=== PATIENT | female | born 1995 | race Caucasian/White ===

== ENCOUNTER 2019-01-23 21:28 | Inpatient (IN) | payer OTHER ==
[~2019-01-23] VITALS: Ht 157.5 cm; Wt 90.7 kg
[~2019-01-23 21:28] MED LIST: ACET-6134 PO; FERR-212 PO
--- NOTE | 2019-01-23 21:33 | NUR ---
PT SCREENED BY DR VALENTIN. PT TAKEN TO L&D. TO RETURN TO ER AFTER CLEARED BY L&D.
[2019-01-23] MEDS ORDERED: NALBUPHINE 10 MG/ML AMP IVP ONE (22:10)
[2019-01-23] MEDS ORDERED: ONDANSETRON 4 MG/2 ML VIAL IVP PRN (22:10)
[2019-01-23] MEDS ORDERED: ALUMINUM HYD/MAG/SIMETHICONE 30 ML UDC PO PRN (22:15)
[2019-01-23] MEDS ORDERED: ONDANSETRON 4 MG/2 ML VIAL ONE (22:34)
[2019-01-23] MEDS ORDERED: NALBUPHINE 10 MG/ML AMP ONE (22:35)
[2019-01-23 23:36] VITALS: BP 147/86
[2019-01-23 23:39] LABS: ANION GAP 15.5 (8-16); CARBON DIOXIDE 22.4 mmol/L (21-32); CREATININE 0.6 mg/dL (0.6-1.3); POTASSIUM 3.9 mmol/L (3.5-5.1)
[2019-01-23 23:57] LABS: BILIRUBIN,DIRECT 0.1 mg/dL (0.0-0.3); TOTAL BILIRUBIN 0.4 mg/dL (0.0-1.0)
[2019-01-23 23:58] LABS: ALBUMIN 2.4 g/dL (3.4-5.0)
[2019-01-24] MEDS: TERBUTALINE 1 MG/ML VIAL SUBQ SCH ×2 (00:49→01:29)
[2019-01-24] MEDS ORDERED: TERBUTALINE 1 MG/ML VIAL SUBQ ONE ×2 (00:57→01:39)
[2019-01-24] MEDS: LACTATED RINGERS 1,000 ML IV SCH ×3 (01:24→18:38)
[2019-01-24] MEDS: TERBUTALINE 2.5 MG TAB PO SCH ×3 (05:59→18:22)
[2019-01-24] MEDS ORDERED: TERBUTALINE 2.5 MG TAB ONE ×3 (06:02→18:31)
[2019-01-24] MEDS ORDERED: PROMETHAZINE 25 MG/ML VIAL IVP PRN (07:35)
[2019-01-24] MEDS ORDERED: ALUMINUM HYD/MAG/SIMETHICONE 30 ML UDC ONE ×4 (07:42→21:18)
--- NOTE | 2019-01-24 07:51 | NUR ---
PATIENT HAS BEEN SCREENED AND CATEGORIZED LOW NUTRITION RISK. PATIENT WILL BE SEEN WITHIN 7 DAYS OF ADMISSION. 01/30/[address]
[2019-01-24] MEDS: NALBUPHINE 10 MG/ML AMP IVP PRN (07:56)
[2019-01-24] MEDS ORDERED: PROMETHAZINE 25 MG/ML VIAL ONE (08:04)
[2019-01-24] MEDS ORDERED: NALBUPHINE 10 MG/ML AMP ONE (08:04)
[2019-01-24] MEDS: FAMOTIDINE 20 MG TAB PO SCH ×2 (09:06→21:10)
[2019-01-24] MEDS: ALUMINUM HYD/MAG/SIMETHICONE 30 ML UDC PO SCH ×4 (09:07→21:11)
[2019-01-24 10:35] LABS: BASOPHILS % (AUTO) 0.1 % (0.0-2.0); EOSINOPHILS % (AUTO) 0.3 % (0.0-4.0); HEMATOCRIT 34.6 % (36-48); HEMOGLOBIN 11.8 g/dL (12.0-16.0); LYMPHOCYTES # (AUTO) 1.3 K/uL (2.5-16.5); LYMPHOCYTES % (AUTO) 11.9 % (20.5-51.1); MEAN CORPUSCULAR HEMOGLOBIN 28 pg (27-31); MEAN CORPUSCULAR HGB CONC 34 g/dL (33-37); MEAN CORPUSCULAR VOLUME 82.9 fL (80-94); MONOCYTES # (AUTO) 0.8 K/uL (0.8-1.0); MONOCYTES % (AUTO) 7.9 % (1.7-9.3); NEUTROPHILS # (AUTO) 8.6 K/uL (1.8-7.7); NEUTROPHILS % (AUTO) 79.8 % (42.2-75.2); PLATELET COUNT (AUTO) 137 K/uL (140-450); RED BLOOD CELL COUNT(AUTO) 4.18 MIL/uL (4.20-5.40); RED CELL DISTRIBUTION WIDTH 14.2 % (11.6-13.7); WHITE BLOOD COUNT (AUTO) 10.8 K/uL (4.8-10.8)
[2019-01-24 11:02] LABS: PROTHROMBIN TIME 9.3 secs (10.8-13.4)
[2019-01-24] MEDS: BETAMETH ACET/BETAMETH NA PH 30 MG/5 ML VIAL IM SCH (13:34)
[2019-01-24] MEDS: METOCLOPRAMIDE 10 MG/2 ML INJ VIAL IVP PRN (13:35)
[2019-01-24] MEDS ORDERED: BETAMETH ACET/BETAMETH NA PH 30 MG/5 ML VIAL IM ONE (13:43)
[2019-01-24] MEDS ORDERED: METOCLOPRAMIDE 10 MG/2 ML INJ VIAL ONE (13:43)
[2019-01-25] MEDS: TERBUTALINE 2.5 MG TAB PO SCH ×2 (00:02→06:06)
[2019-01-25] MEDS ORDERED: TERBUTALINE 2.5 MG TAB ONE ×3 (00:14→11:55)
[2019-01-25] MEDS: ALUMINUM HYD/MAG/SIMETHICONE 30 ML UDC PO SCH ×3 (01:04→13:06)
[2019-01-25] MEDS ORDERED: ALUMINUM HYD/MAG/SIMETHICONE 30 ML UDC ONE ×4 (01:15→13:15)
[2019-01-25] MEDS: NALBUPHINE 10 MG/ML AMP IVP PRN (01:25)
[2019-01-25] MEDS: LACTATED RINGERS 1,000 ML IV SCH ×2 (01:29→08:14)
[2019-01-25] MEDS: METOCLOPRAMIDE 10 MG/2 ML INJ VIAL IVP PRN ×2 (01:32→12:56)
[2019-01-25] MEDS ORDERED: NALBUPHINE 10 MG/ML AMP ONE (01:34)
[2019-01-25] MEDS ORDERED: METOCLOPRAMIDE 10 MG/2 ML INJ VIAL ONE ×2 (01:42→13:07)
[2019-01-25] MEDS: BETAMETH ACET/BETAMETH NA PH 30 MG/5 ML VIAL IM SCH (01:55)
[2019-01-25] MEDS ORDERED: BETAMETH ACET/BETAMETH NA PH 30 MG/5 ML VIAL IM ONE (01:59)
--- NOTE | 2019-01-25 08:36 | NUR ---
PATIENT HAS BEEN SCREENED AND CATEGORIZED LOW NUTRITION RISK. PATIENT WILL BE SEEN WITHIN 7 DAYS OF ADMISSION. 01/31/[address]
[2019-01-25] MEDS: FAMOTIDINE 20 MG TAB PO SCH (09:25)
[2019-01-25] MEDS ORDERED: metFORMIN 850 MG TAB PO SCH (10:50)
== END 2019-01-25 15:32 | disposition home or self-care (01) | DRG 566 ==
LOC: MED 21:28 → MLD 21:35 → MED 21:35 → MLD 21:41 → OBSVTOIN 01-24 13:25
PROVIDERS: ADMIT Obstetrics & Gynecology; ATTEND Obstetrics & Gynecology
DX: O99.613 Diseases of the digestive system complicating pregnancy, third trimester (principal); O24.419 Gestational diabetes mellitus in pregnancy, unspecified control; K29.70 Gastritis, unspecified, without bleeding; O60.03 Preterm labor without delivery, third trimester; K30 Functional dyspepsia; Z3A.30 30 weeks gestation of pregnancy
CPT/HCPCS: 99281; G0378; 36415; 76700; 76805; 80048; 80076; 81000; 82150; 82948; 83690; 85025; 85379; 85384; 85610; 85730; J0702; J2300; J2405; J2550; J2765; J3105; J7120; Q0092

== ENCOUNTER 2019-01-27 01:35 | Observation (INO) | payer OTHER ==
[~2019-01-27] VITALS: Ht 157.5 cm; Wt 98.0 kg
[~2019-01-27 01:35] MED LIST changes: -ACET-6134 PO
[2019-01-27 01:37] VITALS: BP 182/117
--- NOTE | 2019-01-27 01:42 | NUR ---
TRIAGE COMPLETE. REPORT TO ANDRESSA MERRILL IN LABOR AND DELVIERY. TRANSPORT VIA W/C BY ARNOLDO BUNN.
[2019-01-27] MEDS ORDERED: NALBUPHINE 10 MG/ML AMP IVP SCH (02:30)
[2019-01-27] MEDS ORDERED: LACTATED RINGERS 1,000 ML IV SCH (02:30)
[2019-01-27] MEDS ORDERED: NALBUPHINE 10 MG/ML AMP ONE ×3 (02:50→11:28)
[2019-01-27 03:42] LABS: BASOPHILS % (AUTO) 0.3 % (0.0-2.0); EOSINOPHILS # (AUTO) 0.1 K/uL (0-0.4); EOSINOPHILS % (AUTO) 0.8 % (0.0-4.0); HEMATOCRIT 37.1 % (36-48); HEMOGLOBIN 12.4 g/dL (12.0-16.0); LYMPHOCYTES # (AUTO) 2.4 K/uL (2.5-16.5); LYMPHOCYTES % (AUTO) 17.1 % (20.5-51.1); MEAN CORPUSCULAR HEMOGLOBIN 28 pg (27-31); MEAN CORPUSCULAR HGB CONC 33 g/dL (33-37); MEAN CORPUSCULAR VOLUME 82.6 fL (80-94); MONOCYTES # (AUTO) 1.3 K/uL (0.8-1.0); MONOCYTES % (AUTO) 9.6 % (1.7-9.3); NEUTROPHILS # (AUTO) 10.1 K/uL (1.8-7.7); NEUTROPHILS % (AUTO) 72.2 % (42.2-75.2); PLATELET COUNT (AUTO) 184 K/uL (140-450); RED CELL DISTRIBUTION WIDTH 14.2 % (11.6-13.7)
[2019-01-27] MEDS: TERBUTALINE 1 MG/ML VIAL SUBQ SCH ×2 (03:50→04:02)
[2019-01-27 03:54] LABS: ALBUMIN 2.4 g/dL (3.4-5.0); TOTAL BILIRUBIN 0.3 mg/dL (0.0-1.0)
[2019-01-27 03:58] LABS: BILIRUBIN,DIRECT 0.1 mg/dL (0.0-0.3)
[2019-01-27] MEDS ORDERED: TERBUTALINE 1 MG/ML VIAL SUBQ ONE (03:59)
[2019-01-27] MEDS ORDERED: NALBUPHINE 10 MG/ML AMP IVP PRN (07:55)
[2019-01-27] MEDS ORDERED: ALUMINUM HYD/MAG/SIMETHICONE 30 ML UDC PO PRN (08:00)
[2019-01-27] MEDS ORDERED: ALUMINUM HYD/MAG/SIMETHICONE 30 ML UDC ONE ×3 (08:20→16:08)
[2019-01-27] MEDS ORDERED: METOCLOPRAMIDE 10 MG/2 ML INJ VIAL IVP PRN (08:25)
--- NOTE | 2019-01-27 08:27 | NUR ---
PATIENT HAS BEEN SCREENED AND CATEGORIZED LOW NUTRITION RISK. PATIENT WILL BE SEEN WITHIN 7 DAYS OF ADMISSION. 02/02/[address]
[2019-01-27 08:29] VITALS: BP 143/71
[2019-01-27] MEDS ORDERED: METOCLOPRAMIDE 10 MG/2 ML INJ VIAL ONE (08:56)
[2019-01-27] MEDS ORDERED: LABETALOL 100 MG/20 ML VIAL ONE (10:53)
[2019-01-27] MEDS ORDERED: LABETALOL 100 MG/20 ML VIAL IV SCH (11:00)
[2019-01-27] MEDS ORDERED: MAG SULF 2000 MG/WATER PREMIX 100 ML IV ONE (11:20)
[2019-01-27] MEDS ORDERED: MAG SULF 20 GM/H2O PREMIX DRIP 500 ML IV SCH (11:20)
[2019-01-27] MEDS ORDERED: NIFEdipine 10 MG CAPLF ONE (11:36)
[2019-01-27] MEDS ORDERED: MAGNESIUM SULFATE 4GM in STERILE WATER 100 ML PREMIX IV SCH (12:00)
[2019-01-27] MEDS ORDERED: NIFEdipine 10 MG CAPLF PO SCH (12:00)
[2019-01-27] MEDS ORDERED: MAG SULF 20 GM/H2O PREMIX DRIP 500 ML IV ONE (12:30)
--- NOTE | 2019-01-27 13:00 | NUR ---
ORDER FOR HIGHER LEVEL OF CARE FAXED TO [facility].
[2019-01-27 13:07] LABS: APPEARANCE,URINE CLEAR (CLEAR); BILIRUBIN,URINE NEGATIVE (NEGATIVE); BLOOD, URINE NEGATIVE (NEGATIVE); COLOR,URINE YELLOW (YELLOW); LEUKOCYTE ESTERASE ,URINE NEGATIVE (NEGATIVE); NITRITE, URINE NEGATIVE (NEGATIVE); PH,URINE 8.5 (5.0-9.0); UGLUCOSE 1+ (NEGATIVE)
[2019-01-27] MEDS ORDERED: ceFAZolin 1,000 MG VIAL ONE (13:57)
[2019-01-27 14:00] LABS: PROTHROMBIN TIME 8.8 secs (10.8-13.4)
[2019-01-27 14:02] LABS: RBC,URINE 0-5 /HPF (0-5); WBC,URINE 0-5 /HPF (0-5)
--- NOTE | 2019-01-27 14:13 | NUR ---
CONTACTED TALA OF [facility] AT [phone], REGARDING HIGHER LEVEL OF CARE TRANSFER. HE PROVIDED ME WITH TRANSPORT AUTH [id number] AND TRANSFER AUTH [id number]. PRIMARY RN MADE AWARE.
[2019-01-27] MEDS ORDERED: MORPHINE SULFATE 10 MG/ML VIAL IVP PRN (15:10)
[2019-01-27] MEDS ORDERED: MORPHINE SULFATE 10 MG/ML VIAL ONE (15:31)
== END 2019-01-27 16:30 | disposition short-term general hospital (02) ==
LOC: MED 01:38 → MLD 01:56
PROVIDERS: ADMIT Obstetrics & Gynecology; ATTEND Obstetrics & Gynecology
DX: O24.419 Gestational diabetes mellitus in pregnancy, unspecified control (principal); O26.893 Other specified pregnancy related conditions, third trimester; R10.13 Epigastric pain; Z3A.30 30 weeks gestation of pregnancy
CPT/HCPCS: 36415; 80076; 81001; 82150; 82948; 85025; 85379; 85610; 85730; 93005; 96365; 96366; 96372; 96375; 96376; 99281; G0378; J0690; J2270; J2300; J2765; J3105; J3475; J3490; J7120